=== PATIENT | female | born 1975 | race Hispanic/Latino ===

== ENCOUNTER 2024-10-28 14:45 | Inpatient (IN) | payer SELFPAY ==
[~2024-10-28] VITALS: Ht 149.9 cm; Wt 90.7 kg
[2024-10-28] MEDS ORDERED: FUROSEMIDE INJ 10 MG/ML 4 ML VIAL ONE (15:15)
[2024-10-28] MEDS: NITROGLYCERIN 2% OINT 1 GM PKT TOP ONE (15:18)
[2024-10-28] MEDS: FUROSEMIDE INJ 10 MG/ML 4 ML VIAL IV ONE (15:19)
[2024-10-28 15:45] LABS: BASOPHILS # (AUTO) 0.1 (0.0-0.1); BASOPHILS % 0.9 % (0.0-1.0); EOSINOPHILS % 0.4 % (0.0-6.0); HEMATOCRIT 46.3 % (34.2-44.1); HEMOGLOBIN 14.9 g/dL (12.0-16.0); LYMPHOCYTES # (AUTO) 1.3 (1.0-3.2); MEAN CORPUSCULAR HEMOGLOBIN 32.6 pg (28-32); MEAN CORPUSCULAR HGB CONC 32.2 g/dL (31-35); MEAN CORPUSCULAR VOLUME 101.3 fL (81-99); MONOCYTES # (AUTO) 0.6 (0.2-0.8); MONOCYTES % 9.1 % (4.4-11.3); NEUTROPHILS # (AUTO) 4.9 (2.1-6.9); NEUTROPHILS % 70.3 % (38.7-80.0); PLATELET COUNT 141 x10e3/uL (140-360); RED BLOOD COUNT 4.57 x10e6/uL (3.6-5.1); WHITE BLOOD COUNT 6.93 x10e3/uL (4.8-10.8)
[2024-10-28 15:53] LABS: INR 1.13; PARTIAL THROMBOPLASTIN TIME 30.3 seconds (23.8-35.5); PROTHROMBIN TIME 15.2 seconds (11.9-14.5)
[2024-10-28 16:01] LABS: ALANINE AMINOTRANSFERASE 15 IU/L (0-55); ALBUMIN 3.7 g/dL (3.5-5.0); ALBUMIN/GLOBULIN RATIO 1.2 (0.8-2.0); ALKALINE PHOSPHATASE 122 IU/L (40-150); ANION GAP 16.3 mmol/L (8-16); BILIRUBIN,TOTAL 2.5 mg/dL (0.2-1.2); BLOOD UREA NITROGEN 12 mg/dL (7-26); BUN/CREATININE RATIO 15 (6-25); CALCIUM 8.8 mg/dL (8.4-10.2); CARBON DIOXIDE 19 mmol/L (22-29); CHLORIDE 110 mmol/L (98-107); CREATINE KINASE 188 IU/L (29-168); CREATININE, SERUM 0.79 mg/dL (0.57-1.11); EST GLOMERULAR FILTRATION RATE 92 ML/MIN (>=60); GLUCOSE 98 mg/dL (74-118); MAGNESIUM 1.6 MG/DL (1.3-2.1); SODIUM 142 mmol/L (136-145); TOTAL PROTEIN 6.8 g/dL (6.5-8.1)
[2024-10-28 16:07] LABS: TROPONIN I 0.024 ng/mL (0-0.300)
[2024-10-28 16:10] LABS: POTASSIUM 3.3 mmol/L (3.5-5.1)
[2024-10-28 16:12] LABS: BILIRUBIN,URINE NEGATIVE (NEGATIVE); CLARITY,URINE HAZY (CLEAR); COLOR,URINE YELLOW (YELLOW); GLUCOSE, URINE NEGATIVE (NEGATIVE); KETONES,URINE NEGATIVE (NEGATIVE); LEUKOCYTE ESTERASE ,URINE NEGATIVE (NEGATIVE); NITRITE,URINE NEGATIVE (NEGATIVE); PH,URINE 7 (5 - 7); PROTEIN,URINE DIPSTICK >=300 (NEGATIVE); URINE UROBILINOGEN 0.2 mg/dL (0.2 - 1)
[2024-10-28 16:13] LABS: AMORPHOUS SEDIMENT,URINE FEW (FEW); BACTERIA,URINE FEW /HPF; EPITHELIAL CELLS,URINE MODERATE /LPF; HYALINE CASTS 0-1 (0-1); RBC,URINE 0-5 /HPF (0-5); WBC,URINE (MAN) 0-5 /HPF (0-5)
[2024-10-28 16:26] LABS: CORONAVIRUS COVID-19 AG NEGATIVE (NEGATIVE); INFLUENZA A AG NEGATIVE (NEGATIVE); INFLUENZA B AG NEGATIVE (NEGATIVE)
[2024-10-28] MEDS ORDERED: ONDANSETRON HCL INJ 2MG/ML 2ML 2 MG/ML VIAL IV PRN (16:30)
[2024-10-28] MEDS: ASPIRIN 81 MG ENTERIC COATED PO STA (17:10)
[2024-10-28] MEDS: METOPROLOL TARTRATE 25 MG TAB PO ONE (17:11)
[2024-10-28 17:13] VITALS: PULSE 103; RESP 22; TEMP 97.6
[2024-10-28] MEDS ORDERED: INFLUENZA VIRUS VAC SPLIT INJ 0.5 ML SYR IM SCH (17:54)
[2024-10-28] MEDS ORDERED: PNEUMOCOCCAL VACCINE POLYVALENT 23 MCG/0.5 ML VIAL IM SCH (17:54)
[2024-10-28 18:02] VITALS: BP 147/113; PULSE 92; RESP 18; TEMP 97.6; O2SAT 96
[2024-10-28 18:13] VITALS: BP 147/113; PULSE 94; RESP 18; TEMP 97.2; O2SAT 96
[2024-10-28] MEDS: NITROGLYCERIN 2% OINT 1 GM PKT TOP SCH (18:14)
[2024-10-28 18:31] VITALS: BP 142/113; PULSE 92; RESP 18; TEMP 97.6; O2SAT 96
[2024-10-28 19:29] LABS: TROPONIN I 0.024 ng/mL (0-0.300)
[2024-10-28 20:34] VITALS: BP 129/102; PULSE 84; RESP 18; TEMP 97.7; O2SAT 95
[2024-10-28 21:00] VITALS: BP 129/102; PULSE 84; RESP 18; TEMP 97.7; O2SAT 95
[2024-10-29] VITALS (9 sets, daily range): BP systolic 116–147; BP diastolic 87–105; PULSE 81–96; RESP 18–20; TEMP 95.7–98.1; O2SAT 94–97
[2024-10-29] MEDS: ACETAMINOPHEN 325 MG TAB PO PRN (00:51)
[2024-10-29 01:39] LABS: TROPONIN I 0.018 ng/mL (0-0.300)
[2024-10-29 06:52] LABS: BASOPHILS # (AUTO) 0.1 (0.0-0.1); EOSINOPHILS % 0.5 % (0.0-6.0); HEMATOCRIT 44.2 % (34.2-44.1); HEMOGLOBIN 14.2 g/dL (12.0-16.0); LYMPHOCYTES # (AUTO) 1.3 (1.0-3.2); LYMPHOCYTES % 20.8 % (18.0-39.1); MEAN CORPUSCULAR HEMOGLOBIN 32.5 pg (28-32); MEAN CORPUSCULAR HGB CONC 32.1 g/dL (31-35); MEAN CORPUSCULAR VOLUME 101.1 fL (81-99); MONOCYTES # (AUTO) 0.6 (0.2-0.8); MONOCYTES % 10.2 % (4.4-11.3); NEUTROPHILS # (AUTO) 4.1 (2.1-6.9); NEUTROPHILS % 67.2 % (38.7-80.0); PLATELET COUNT 142 x10e3/uL (140-360); RED BLOOD COUNT 4.37 x10e6/uL (3.6-5.1); RED CELL DISTRIBUTION WIDTH 13.7 % (11.7-14.4)
[2024-10-29 07:19] LABS: ALBUMIN 3.4 g/dL (3.5-5.0); ALBUMIN/GLOBULIN RATIO 1.2 (0.8-2.0); ANION GAP 15.8 mmol/L (8-16); BILIRUBIN,TOTAL 2.3 mg/dL (0.2-1.2); CALCIUM 8.8 mg/dL (8.4-10.2); CHOL/HDL RATIO 3.4 (3.0-3.6); CREATININE, SERUM 0.82 mg/dL (0.57-1.11); TOTAL PROTEIN 6.2 g/dL (6.5-8.1)
[2024-10-29 07:40] LABS: POTASSIUM 2.8 mmol/L (3.5-5.1)
[2024-10-29 07:41] LABS: TROPONIN I 0.019 ng/mL (0-0.300)
[2024-10-29] MEDS: POTASSIUM CHLORIDE 20 MEQ TAB CR PO STA ×2 (07:54→10:21)
[2024-10-29] MEDS: ASPIRIN 81 MG ENTERIC COATED PO SCH (07:55)
[2024-10-29] MEDS: METOPROLOL TARTRATE 25 MG TAB PO SCH (07:55)
[2024-10-29] MEDS: FUROSEMIDE INJ 10 MG/ML 2 ML VIAL IV SCH (09:00)
[2024-10-29] MEDS: MAGNESIUM SULFATE 2GM/50ML 50 ML IV SCH (10:26)
[2024-10-29] MEDS: FUROSEMIDE INJ 10 MG/ML 4 ML VIAL IV SCH (10:28)
[2024-10-29] MEDS ORDERED: MELATONIN 5 MG TABLET PO PRN (11:00)
[2024-10-29] MEDS ORDERED: DEXTROSE 50% SYRINGE 50 ML IV PRN (11:00)
[2024-10-29] MEDS ORDERED: HYDRALAZINE HCL 20 MG/ML VIAL IV PRN (11:00)
[2024-10-29] MEDS ORDERED: SIMETHICONE 80 MG CHEW PO PRN (11:00)
[2024-10-29] MEDS ORDERED: BENZONATATE 100 MG CAP PO PRN (11:00)
[2024-10-29] MEDS ORDERED: DOCUSATE SODIUM 100 MG CAP PO PRN (11:00)
[2024-10-29 11:26] LABS: CREATININE,URINE RANDOM 20.29 mg/dL (47-110); TOTAL PROTEIN, URINE 100.7 mg/dL (1-14)
[2024-10-29] MEDS ORDERED: POTASSIUM CHLORIDE 20 MEQ TAB CR PO SCH (12:00)
[2024-10-29] MEDS: FUROSEMIDE INJ 100 MG in SODIUM CHLORIDE 0.9% 90 ML IV SCH ×2 (15:15→23:56)
[2024-10-29] MEDS: POTASSIUM CHLORIDE 20 MEQ TAB CR PO PRN (15:27)
[2024-10-29] MEDS: SPIRONOLACTONE 25 MG TAB PO SCH (16:22)
[2024-10-29] MEDS: ENOXAPARIN SOD INJ 40 MG/0.4 ML SYR SC SCH (16:23)
[2024-10-29] MEDS: ALBUTEROL/IPRATROPIUM 3 ML NEB NEB PRN (22:45)
[2024-10-30] VITALS (10 sets, daily range): BP systolic 126–144; BP diastolic 81–111; PULSE 86–103; RESP 18–19; TEMP 97.3–98; O2SAT 94–99
[2024-10-30 06:13] LABS: BASOPHILS # (AUTO) 0.1 (0.0-0.1); EOSINOPHILS % 0.2 % (0.0-6.0); HEMATOCRIT 43.5 % (34.2-44.1); HEMOGLOBIN 14.2 g/dL (12.0-16.0); LYMPHOCYTES # (AUTO) 1.4 (1.0-3.2); LYMPHOCYTES % 22.5 % (18.0-39.1); MEAN CORPUSCULAR HEMOGLOBIN 32.6 pg (28-32); MEAN CORPUSCULAR HGB CONC 32.6 g/dL (31-35); MEAN CORPUSCULAR VOLUME 99.8 fL (81-99); MONOCYTES # (AUTO) 0.6 (0.2-0.8); MONOCYTES % 9.8 % (4.4-11.3); NEUTROPHILS % 66.2 % (38.7-80.0); PLATELET COUNT 129 x10e3/uL (140-360); RED BLOOD COUNT 4.36 x10e6/uL (3.6-5.1); RED CELL DISTRIBUTION WIDTH 13.5 % (11.7-14.4)
[2024-10-30 06:48] LABS: ALBUMIN 3.8 g/dL (3.5-5.0); ALBUMIN/GLOBULIN RATIO 1.3 (0.8-2.0); ANION GAP 18.9 mmol/L (8-16); BILIRUBIN,TOTAL 3.4 mg/dL (0.2-1.2); CALCIUM 9.3 mg/dL (8.4-10.2); CREATININE, SERUM 0.91 mg/dL (0.57-1.11); MAGNESIUM 1.6 MG/DL (1.3-2.1); TOTAL PROTEIN 6.8 g/dL (6.5-8.1)
[2024-10-30 06:54] LABS: POTASSIUM 2.9 mmol/L (3.5-5.1)
[2024-10-30 07:13] LABS: CHOL/HDL RATIO 3.4 (3.0-3.6)
[2024-10-30 07:34] LABS: THYROID STIMULATING HORMONE 2.246 uIU/mL (0.350-4.940)
[2024-10-30] MEDS: FUROSEMIDE INJ 10 MG/ML 4 ML VIAL ONE (08:00)
[2024-10-30] MEDS: PANTOPRAZOLE SOD 40 MG TABEC PO SCH (08:04)
[2024-10-30] MEDS: LOSARTAN POTASSIUM 25 MG TAB PO SCH (08:11)
[2024-10-30] MEDS: METOPROLOL SUCCINATE 50 MG TAB XL PO SCH (08:11)
[2024-10-30] MEDS: POTASSIUM CHLORIDE 20 MEQ TAB CR PO SCH (09:00)
[2024-10-30] MEDS: LIDOCAINE 4% PATCH TP PRN (09:17)
[2024-10-30] MEDS: POTASSIUM CHLORIDE 20MEQ/100ML 100 ML IV SCH (09:18)
[2024-10-30] MEDS: SODIUM CHLORIDE 0.9% 250ML 250 ML ONE (11:58)
[2024-10-30 14:59] LABS: ANION GAP 18.4 mmol/L (8-16); CALCIUM 9.3 mg/dL (8.4-10.2); CREATININE, SERUM 1.07 mg/dL (0.57-1.11)
[2024-10-30 15:00] LABS: POTASSIUM 3.4 mmol/L (3.5-5.1)
[2024-10-31] VITALS (10 sets, daily range): BP systolic 97–136; BP diastolic 78–90; PULSE 79–94; RESP 18–20; TEMP 97.2–98.1; O2SAT 95–99
[2024-10-31 07:00] LABS: BASOPHILS # (AUTO) 0.1 (0.0-0.1); BASOPHILS % 1.2 % (0.0-1.0); EOSINOPHILS % 0.3 % (0.0-6.0); HEMATOCRIT 45.5 % (34.2-44.1); HEMOGLOBIN 15.6 g/dL (12.0-16.0); LYMPHOCYTES % 27.2 % (18.0-39.1); MEAN CORPUSCULAR HEMOGLOBIN 32.9 pg (28-32); MEAN CORPUSCULAR HGB CONC 34.3 g/dL (31-35); MONOCYTES # (AUTO) 0.8 (0.2-0.8); MONOCYTES % 10.8 % (4.4-11.3); NEUTROPHILS # (AUTO) 4.3 (2.1-6.9); NEUTROPHILS % 60.2 % (38.7-80.0); PLATELET COUNT 163 x10e3/uL (140-360); RED BLOOD COUNT 4.74 x10e6/uL (3.6-5.1); RED CELL DISTRIBUTION WIDTH 14.2 % (11.7-14.4); WHITE BLOOD COUNT 7.21 x10e3/uL (4.8-10.8)
[2024-10-31 07:24] LABS: ANION GAP 18.8 mmol/L (8-16); CALCIUM 9.1 mg/dL (8.4-10.2); CREATININE, SERUM 1.04 mg/dL (0.57-1.11); MAGNESIUM 1.5 MG/DL (1.3-2.1); POTASSIUM 3.8 mmol/L (3.5-5.1)
[2024-10-31] MEDS: LOSARTAN POTASSIUM 100 MG TAB PO SCH (08:33)
[2024-10-31 09:31] LABS: TOTAL PROTEIN, URINE < 6.8 mg/dL (1-14)
[2024-10-31 09:33] LABS: TOTAL PROTEIN 24HR, URINE 15.29997 mg/24hr (50-100); TOTAL VOLUME, URINE 225 ml/24hr (800-2000)
[2024-10-31] MEDS: MAGNESIUM SULFATE 2GM/50ML 50 ML IV ONE (18:14)
[2024-10-31] MEDS: METOLAZONE 5 MG TAB PO ONE (18:14)
[2024-11-01] VITALS (11 sets, daily range): BP systolic 103–143; BP diastolic 66–104; PULSE 76–87; RESP 16–20; TEMP 97.4–98; O2SAT 93–100
[2024-11-01] MEDS: DIPHENHYDRAMINE HCL 25 MG CAP PO PRN (00:14)
[2024-11-01 06:50] LABS: ABG HCO3 24 mmol/L (22-26); ABG PCO2 35 mmHg (35-45); ABG PH 7.45 (7.35-7.45); ABG PO2 84 mmHg (80-105); ABG TCO2 25
[2024-11-01 07:01] LABS: BASOPHILS # (AUTO) 0.1 (0.0-0.1); BASOPHILS % 1.3 % (0.0-1.0); EOSINOPHILS % 0.3 % (0.0-6.0); LYMPHOCYTES # (AUTO) 1.4 (1.0-3.2); LYMPHOCYTES % 22.4 % (18.0-39.1); MEAN CORPUSCULAR HGB CONC 31.4 g/dL (31-35); MEAN CORPUSCULAR VOLUME 105.2 fL (81-99); MONOCYTES # (AUTO) 0.7 (0.2-0.8); MONOCYTES % 10.4 % (4.4-11.3); NEUTROPHILS # (AUTO) 4.2 (2.1-6.9); NEUTROPHILS % 65.3 % (38.7-80.0); PLATELET COUNT 162 x10e3/uL (140-360); RED BLOOD COUNT 4.85 x10e6/uL (3.6-5.1); RED CELL DISTRIBUTION WIDTH 13.8 % (11.7-14.4); WHITE BLOOD COUNT 6.37 x10e3/uL (4.8-10.8)
[2024-11-01 07:28] LABS: ANION GAP 20.8 mmol/L (8-16); CALCIUM 9.5 mg/dL (8.4-10.2); CREATININE, SERUM 0.99 mg/dL (0.57-1.11)
[2024-11-01 07:34] LABS: POTASSIUM 2.8 mmol/L (3.5-5.1)
[2024-11-01] MEDS: POTASSIUM CHLORIDE 10MEQ EA PO ONE (11:01)
[2024-11-01 15:12] LABS: cANCA TITER <1:20 titer (Neg:<1:20)
[2024-11-01] MEDS: POTASSIUM CHLORIDE 20MEQ/100ML 100 ML IV ONE (18:21)
[2024-11-01 20:40] LABS: ATYPICAL pANCA TITER <1:20 titer (Neg:<1:20); pANCA TITER <1:20 titer (Neg:<1:20)
[2024-11-02] VITALS (7 sets, daily range): BP systolic 97–114; BP diastolic 53–93; PULSE 75–86; RESP 18–20; TEMP 95.7–98.2; O2SAT 96–99
[2024-11-02 06:58] LABS: BASOPHILS # (AUTO) 0.1 (0.0-0.1); BASOPHILS % 1.2 % (0.0-1.0); EOSINOPHILS # (AUTO) 0.1 (0.0-0.4); EOSINOPHILS % 1.5 % (0.0-6.0); HEMATOCRIT 45.8 % (34.2-44.1); HEMOGLOBIN 14.6 g/dL (12.0-16.0); LYMPHOCYTES # (AUTO) 1.4 (1.0-3.2); LYMPHOCYTES % 22.9 % (18.0-39.1); MEAN CORPUSCULAR HEMOGLOBIN 32.4 pg (28-32); MEAN CORPUSCULAR HGB CONC 31.9 g/dL (31-35); MEAN CORPUSCULAR VOLUME 101.6 fL (81-99); MONOCYTES # (AUTO) 0.7 (0.2-0.8); MONOCYTES % 12.1 % (4.4-11.3); NEUTROPHILS # (AUTO) 3.7 (2.1-6.9); PLATELET COUNT 157 x10e3/uL (140-360); RED BLOOD COUNT 4.51 x10e6/uL (3.6-5.1); RED CELL DISTRIBUTION WIDTH 13.5 % (11.7-14.4); WHITE BLOOD COUNT 5.94 x10e3/uL (4.8-10.8)
[2024-11-02 07:26] LABS: ANION GAP 18.6 mmol/L (8-16); CALCIUM 8.5 mg/dL (8.4-10.2); CREATININE, SERUM 1.47 mg/dL (0.57-1.11); POTASSIUM 3.6 mmol/L (3.5-5.1)
[2024-11-02] MEDS: FUROSEMIDE INJ 10 MG/ML 4 ML VIAL IV SCH (10:17)
[2024-11-06 08:26] LABS: SPE ALPHA 1 GLOBULIN 0.3; SPE ALPHA 2 GLOBULIN 0.5
[2024-11-06 08:29] LABS: SPE GAMMA GLOBULIN 1.3
[2024-11-06 08:30] LABS: GLOBULIN TOTAL 3.1; SPE TOTAL PROTEIN 6.4
[2024-11-06 08:31] LABS: KAPPA LIGHT CHAINS 31.8; LAMBDA LIGHT CHAINS 23.8
[2024-11-06 08:32] LABS: A/G RATIO 1.1; KAPPA/LAMBDA RATIO 1.34
== END 2024-11-02 19:12 | disposition home or self-care (01) | DRG 292 ==
LOC: ER 14:48 → ERHOLD 16:28 → MED/SURG3 17:52
PROVIDERS: ADMIT Internal Medicine; ATTEND Internal Medicine
PROC: 05HB33Z Insertion of Infusion Device into Right Basilic Vein, Percutaneous Approach (ICD-10-PCS; principal; 2024-10-30)
PROC: 4A043R1 Measurement of Venous Saturation, Peripheral, Percutaneous Approach (ICD-10-PCS; 2024-10-30)
PROC: 4A033R1 Measurement of Arterial Saturation, Peripheral, Percutaneous Approach (ICD-10-PCS; 2024-10-30)
DX: I50.33 Acute on chronic diastolic (congestive) heart failure (principal); I27.0 Primary pulmonary hypertension; Z68.41 Body mass index [BMI] 40.0-44.9, adult; N04.9 Nephrotic syndrome with unspecified morphologic changes; I47.10 Supraventricular tachycardia, unspecified; E87.6 Hypokalemia; E83.42 Hypomagnesemia; Z91.148 Patient's other noncompliance with medication regimen for other reason; R06.03 Acute respiratory distress; J45.909 Unspecified asthma, uncomplicated; E66.01 Morbid (severe) obesity due to excess calories; G47.33 Obstructive sleep apnea (adult) (pediatric); D75.1 Secondary polycythemia; Z11.52 Encounter for screening for COVID-19
CPT/HCPCS: 36415; 71045; 71046; 76770; 78582; 80048; 80053; 80061; 81001; 81050; 82550; 82570; 82805; 83036; 83735; 83880; 84100; 84156; 84165; 84443; 84484; 84550; 84702; 85025; 85610; 85730; 86021; 86039; 86162; 86225; 87086; 93005; 93306; 93970; 94640; 94799; 99284; A9540; A9558; J1650; J1940; J3475; J3480; J7050

== ENCOUNTER 2024-12-11 21:48 | Emergency (ER) | payer SELFPAY ==
[~2024-12-11] VITALS: Ht 149.9 cm; Wt 90.7 kg
[2024-12-11 22:20] VITALS: PULSE 97; RESP 20; TEMP 97.8
[2024-12-11 23:34] LABS: BASOPHILS % 0.5 % (0.0-1.0); EOSINOPHILS % 0.1 % (0.0-6.0); HEMATOCRIT 44.6 % (34.2-44.1); HEMOGLOBIN 14.8 g/dL (12.0-16.0); LYMPHOCYTES # (AUTO) 1.2 (1.0-3.2); LYMPHOCYTES % 14.7 % (18.0-39.1); MEAN CORPUSCULAR HEMOGLOBIN 32.1 pg (28-32); MEAN CORPUSCULAR HGB CONC 33.2 g/dL (31-35); MEAN CORPUSCULAR VOLUME 96.7 fL (81-99); MONOCYTES # (AUTO) 0.7 (0.2-0.8); NEUTROPHILS # (AUTO) 5.9 (2.1-6.9); NEUTROPHILS % 75.3 % (38.7-80.0); PLATELET COUNT 131 x10e3/uL (140-360); RED BLOOD COUNT 4.61 x10e6/uL (3.6-5.1); RED CELL DISTRIBUTION WIDTH 15.4 % (11.7-14.4); WHITE BLOOD COUNT 7.88 x10e3/uL (4.8-10.8)
[2024-12-11 23:45] LABS: ALBUMIN 3.9 g/dL (3.5-5.0); ALBUMIN/GLOBULIN RATIO 1.2 (0.8-2.0); ANION GAP 14.5 mmol/L (8-16); BILIRUBIN,TOTAL 3.3 mg/dL (0.2-1.2); CALCIUM 9.1 mg/dL (8.4-10.2); CREATININE, SERUM 0.77 mg/dL (0.57-1.11); POTASSIUM 3.5 mmol/L (3.5-5.1); TOTAL PROTEIN 7.1 g/dL (6.5-8.1)
[2024-12-12] MEDS ORDERED: POTASSIUM CHLO10 ME1 PO (01:35)
[2024-12-12] MEDS ORDERED: LASIX40 MG PO (01:35)
[2024-12-12] MEDS: FUROSEMIDE INJ 10 MG/ML 4 ML VIAL IV ONE (01:42)
[2024-12-12] MEDS ORDERED: METOPROLOL SUCC50 MG PO (02:12)
[2024-12-12 02:49] VITALS: BP 179/113; PULSE 73; RESP 19; O2SAT 98
== END 2024-12-12 02:56 | disposition home or self-care (01) ==
LOC: ER 12-12 01:12
DX: R60.9 Edema, unspecified (principal); I50.9 Heart failure, unspecified; R06.02 Shortness of breath; I10 Essential (primary) hypertension; R94.31 Abnormal electrocardiogram [ECG] [EKG]
CPT/HCPCS: 36415; 71045; 80053; 83880; 84484; 85025; 93005; 99283; J1940